=== PATIENT | male | born 1980 | race American Indian/Alaskan Native ===

== ENCOUNTER 2020-07-21 08:43 | Emergency (ER) | payer OTHER ==
[2020-07-21] MEDS ORDERED: SODIUM CHLORIDE 0.9% 1000 ML 1,000 ML IV ONE (08:59)
[2020-07-21] MEDS ORDERED: cefTRIAXone/NS 1 GM/50 ML 1 GM/50 ML BAG IV ONE (08:59)
[2020-07-21] MEDS ORDERED: KETOROLAC 30 MG/1 ML INJ IV ONE (08:59)
--- NOTE | 2020-07-21 09:02 | Emergency Department Report ---
ED ENT HPI - General Chief complaint: Earache Stated complaint: RT EAR PAINS Time Seen by Provider: 07/21/20 08:56 Source: patient Mode of arrival: Ambulatory Limitations: No Limitations - History of Present Illness Initial comments: 39 year old male with no significant pmhx presents to ED with right ear pain and swelling. Onset about 5 days ago. He report decrease hearing from right ear. He denies any drainage from ear. He denies injury to ear. He denies other URI symptoms including cough. He denies any fever or chills. MD complaint: ear pain -: Gradual, days(s) (4) - Related Data Previous Rx's Medication Instructions Recorded Last Taken Type Acetaminophen/Codeine [Tylenol 1 tab PO Q4HR PRN #12 tablet 07/21/20 Unknown Rx /Codeine # 3 tab] Cefdinir 300 mg PO BID #10 capsule 07/21/20 Unknown Rx Ciprofloxacin HCl/Dexameth 4 drop RTEAR BID 7 Days #7.5 ml 07/21/20 Unknown Rx [Ciprodex Otic Suspension] Ibuprofen [Motrin] 800 mg PO Q8HR PRN #30 tablet 07/21/20 Unknown Rx Allergies Allergy/AdvReac Type Severity Reaction Status Date / Time amoxicillin Allergy Unknown Verified 07/21/20 08:54 iodine Allergy Unknown Verified 07/21/20 08:54 Penicillins Allergy Unknown Verified 07/21/20 08:54 ED Dental HPI - General Chief complaint: Earache Stated complaint: RT EAR PAINS Time Seen by Provider: 07/21/20 08:56 Source: patient Mode of arrival: Ambulatory Limitations: No Limitations - Related Data Previous Rx's Medication Instructions Recorded Last Taken Type Acetaminophen/Codeine [Tylenol 1 tab PO Q4HR PRN #12 tablet 07/21/20 Unknown Rx /Codeine # 3 tab] Cefdinir 300 mg PO BID #10 capsule 07/21/20 Unknown Rx Ciprofloxacin HCl/Dexameth 4 drop RTEAR BID 7 Days #7.5 ml 07/21/20 Unknown Rx [Ciprodex Otic Suspension] Ibuprofen [Motrin] 800 mg PO Q8HR PRN #30 tablet 07/21/20 Unknown Rx Allergies Allergy/AdvReac Type Severity Reaction Status Date / Time amoxicillin Allergy Unknown Verified 07/21/20 08:54 iodine Allergy Unknown Verified 07/21/20 08:54 Penicillins Allergy Unknown Verified 07/21/20 08:54 ED Review of Systems ROS: Stated complaint: RT EAR PAINS Other details as noted in HPI Comment: All other systems reviewed and negative Constitutional: denies: chills, fever Eyes: denies: eye pain, eye discharge, vision change ENT: ear pain Respiratory: denies: cough, shortness of breath, SOB with exertion, SOB at rest, wheezing Cardiovascular: denies: chest pain, palpitations Endocrine: no symptoms reported Gastrointestinal: denies: abdominal pain, nausea, vomiting, diarrhea, constipation, hematemesis, hematochezia Genitourinary: denies: urgency, dysuria Skin: denies: rash, lesions, change in color, change in hair/nails Neurological: denies: headache, weakness, paresthesias Psychiatric: denies: anxiety, depression Hematological/Lymphatic: denies: easy bleeding, easy bruising ED Past Medical Hx - Past Medical History Previous Medical History?: No - Surgical History Past Surgical History?: No - Social History Smoking Status: Never Smoker Substance Use Type: None - Medications Home Medications: Home Medications Medication Instructions Recorded Confirmed Last Taken Type Acetaminophen/Codeine [Tylenol 1 tab PO Q4HR PRN #12 tablet 07/21/20 Unknown Rx /Codeine # 3 tab] Cefdinir 300 mg PO BID #10 capsule 07/21/20 Unknown Rx Ciprofloxacin HCl/Dexameth 4 drop RTEAR BID 7 Days #7.5 ml 07/21/20 Unknown Rx [Ciprodex Otic Suspension] Ibuprofen [Motrin] 800 mg PO Q8HR PRN #30 tablet 07/21/20 Unknown Rx ED Physical Exam - General Limitations: No Limitations General appearance: alert, in no apparent distress - Head Head exam: Present: atraumatic, normocephalic, normal inspection - Eye Eye exam: Present: normal appearance, PERRL, EOMI Pupils: Present: normal accommodation - Expanded ENT Exam Expanded Ear exam: Present: other (There is mild swelling noted to external ear; Mod swelling to ear canal with eythema and mild exudates noted in right ear canal. There is significant pain on insertion of otoscope; there is mild preauricular swelling with associated erythema which extends to below earlobe and to mastoid) TM/Canal exam: Erythema: Right TM, Effusion: Right TM, Mastoid Tenderness: Right TM, Canal Discharge: Right TM, Canal Tenderness: Right TM Mouth exam: Present: normal external inspection Teeth exam: Present: normal inspection Throat exam: Positive: normal inspection - Neck Neck exam: Present: normal inspection, full ROM - Respiratory Respiratory exam: Present: normal lung sounds bilaterally. Absent: respiratory distress - Cardiovascular Cardiovascular Exam: Present: regular rate, normal rhythm, normal heart sounds - Neurological Exam Neurological exam: Present: alert, oriented X3, CN II-XII intact, normal gait - Psychiatric Psychiatric exam: Present: normal affect, normal mood - Skin Skin exam: Present: intact ED Course Vital Signs 07/21/20 07/21/20 07/21/20 08:54 09:45 09:48 Temperature 98.3 F Pulse Rate 60 Respiratory 18 16 16 Rate Blood Pressure 107/68 Blood Pressure [Left] O2 Sat by Pulse 99 Oximetry 07/21/20 07/21/20 07/21/20 10:15 11:06 11:10 Temperature Pulse Rate 66 Respiratory 16 16 16 Rate Blood Pressure Blood Pressure 112/72 [Left] O2 Sat by Pulse 99 Oximetry 07/21/20 11:51 Temperature Pulse Rate Respiratory 16 Rate Blood Pressure Blood Pressure [Left] O2 Sat by Pulse Oximetry ED Medical Decision Making - Lab Data Result diagrams: 07/21/20 09:35 07/21/20 09:35 - Radiology Data Radiology results: report reviewed Patient: RYANN MILLER MR#: [id number] 3 : 1980 Acct:[id number] Age/Sex: 39 / M ADM Date: 07/21/20 Loc: ED Attending Dr: Ordering Physician: JAY ARITA Date of Service: 07/21/20 Procedure(s): CT sinuses wo con Accession Number(s): [id number] cc: JAY ARITA SINUS CT 07/21/2020 HISTORY: right ear pain/swelling/redness r/o mastoiditis FINDINGS: CT images of the paranasal sinuses and skull base were obtained. Images are evaluated in the axial, coronal, and sagittal plane. There is no evidence of acute sinusitis. 1 cm mucosal retention cyst is present in the inferior aspect of left maxillary sinus. Paranasal sinuses are otherwise clear. The temporal bones are well pneumatized bilaterally and well aerated. There is no evidence of abnormal soft tissue or fluid within the mastoid air cells, mastoid antrum, or middle ear. There is soft tissue swelling involving the external auditory canal, and prominent soft tissue swelling posterior to the external canal overlying the mastoid tip. This swelling is of mixed attenuation. Small 6 level and air-fluid collection cannot be excluded. IMPRESSION: 1. No evidence of mastoiditis. 2. Soft tissue swelling associated with external auditory canal and adjacent soft tissues. This is most consistent with infection. All CT scans at this location are performed using dose reduction to ALARA by means of automated exposure control. Signer Name: Duc Torres MD Signed: 07/21/2020 10:33 AM Workstation Name: [id number] Transcribed By: BECK Dictated By: Duc Torres MD Electronically Authenticated By: Duc Torres MD Signed Date/Time: 07/21/20 1033 DD/ 1028 TD/TT: - Medical Decision Making labs reviewed and unremarkable. CT shows 1. No evidence of mastoiditis. 2. Soft tissue swelling associated with external auditory canal and adjacent soft tissues. This is most consistent with infection. Patient given IV rocephin. He reports improvement of pain after meds. He is not toxic or ill appearing and not in any acute distress. He is neurologically intact. His VS stable. No indication for admission, emergent consult at this time. Discussed lab/ct reports, diagnoses and tx plan with patient. Recommend f/u with ENT if not better but to return to ED if worse. Patient expressed understanding of inst ructions and agreed with plan. Patient stable at time of d/c. Critical care attestation.: If time is entered above; I have spent that time in minutes in the direct care of this critically ill patient, excluding procedure time. ED Disposition Clinical Impression: Cellulitis of left external ear, Otitis externa, left, Left otitis media Disposition: DC-01 TO HOME OR SELFCARE Is pt being admited?: No Does the pt Need Aspirin: No Condition: Stable Instructions: Otitis Externa, Onld-by-Xeuv, Cellulitis, Adult, Otitis Media, Adult, [id number] Additional Instructions: Take the cefdinir and use the antibiotic eardrops as prescribed. Take the pain medications as prescribed. Try to avoid any water in your ear or any foreign body in your ear. Follow-up with the ENT doctor if your symptoms are not improving. Return to the ER if your symptoms worsens or changes in any way. Prescriptions: Cefdinir 300 mg PO BID #10 capsule Ciprofloxacin HCl/Dexameth [Ciprodex Otic Suspension] 4 drop RTEAR BID 7 Days #7.5 ml Ibuprofen [Motrin] 800 mg PO Q8HR PRN #30 tablet PRN Reason: pain Acetaminophen/Codeine [Tylenol /Codeine # 3 tab] 1 tab PO Q4HR PRN #12 tablet PRN Reason: Pain Referrals: PRIMARY MD FAYE [Primary Care Provider] - 3-5 Days MARC RAIN MD [Staff Physician] - 3-5 Days Forms: Work/School Release Form(ED) Time of Disposition: 11:27
[2020-07-21 10:23] LABS: Basophils # (Auto) 0.1 K/mm3 (0.0-0.1); Eosinophils # (Auto) 0.1 K/mm3 (0.0-0.4); Eosinophils % (Auto) 1.5 % (0.0-4.3); Hematocrit 35.9 % (35.5-45.6); Hemoglobin 12.3 gm/dl (11.8-15.2); Lymphocytes # (Auto) 1.7 K/mm3 (1.2-5.4); Lymphocytes % (Auto) 26.7 % (13.4-35.0); Mean Corpuscular HGB Conc 34 % (32-34); Mean Corpuscular Volume 91 fl (84-94); Monocytes # (Auto) 0.7 K/mm3 (0.0-0.8); Monocytes % (Auto) 10.6 % (0.0-7.3); Platelet Count 210 K/mm3 (140-440); Red Blood Count 3.96 M/mm3 (3.65-5.03); Red Cell Distribution Width 14.4 % (13.2-15.2)
[2020-07-21 10:33] LABS: Alanine Aminotransferase 15 units/L (7-56); Albumin 3.8 g/dL (3.9-5); BUN/Creatinine Ratio 14; Blood Urea Nitrogen 11 mg/dL (9-20); Hemolysis Index 25
--- NOTE | 2020-07-21 10:38 | Cat Scan Report ---
SINUS CT 07/21/2020 HISTORY: right ear pain/swelling/redness r/o mastoiditis FINDINGS: CT images of the paranasal sinuses and skull base were obtained. Images are evaluated in th e axial, coronal, and sagittal plane. There is no evidence of acute sinusitis. 1 cm mucosal retention cyst is present in the inferior aspec t of left maxillary sinus. Paranasal sinuses are otherwise clear. The temporal bones are well pneumatized bilaterally and well aerated. There is no evidence of abnorma l soft tissue or fluid within the mastoid air cells, mastoid antrum, or middle ear. There is soft tissue swelling involving the external auditory canal, and prominent soft tissue swelli ng posterior to the external canal overlying the mastoid tip. This swelling is of mixed attenuation. Small 6 level and air-fluid collection cannot be excluded. IMPRESSION: 1. No evidence of mastoiditis. 2. Soft tissue swelling associated with external auditory canal and adjacent soft tissues. This is mo st consistent with infection. All CT scans at this location are performed using dose reduction to ALARA by means of automated expos ure control. Signer Name: Duc Torres MD Signed: 07/21/2020 10:33 AM Workstation Name: [id number]
[2020-07-21] MEDS ORDERED: HYDROcodone/ACETAMINOPHEN 10-325MG TAB PO ONE (10:48)
[2020-07-21 11:51] VITALS: BP 112/72
== END 2020-07-21 11:52 | disposition home or self-care (01) ==
LOC: ED 08:43
DX: H60.12 Cellulitis of left external ear (principal); H60.92 Unspecified otitis externa, left ear; H66.92 Otitis media, unspecified, left ear; Z79.899 Other long term (current) drug therapy; Z88.0 Allergy status to penicillin; Z88.8 Allergy status to other drugs, medicaments and biological substances
CPT/HCPCS: 36415; 70486; 80053; 85025; 96365; 96375; 99284; J0696; J1885; J7030

== ENCOUNTER 2021-02-06 20:46 | Emergency (ER) | payer OTHER ==
[2021-02-06] MEDS ORDERED: SULFAMETHOXAZOLE/TRIMETHOPRIM 800/160MG DS TAB PO ONE (21:45)
[2021-02-06] MEDS ORDERED: ACETAMINOPHEN 325 MG TAB PO ONE (21:45)
[2021-02-06] MEDS ORDERED: IBUPROFEN 400 MG TAB PO ONE (21:45)
--- NOTE | 2021-02-06 21:49 | Emergency Department Report ---
ED Lower Extremity HPI - General Chief Complaint: Extremity Injury, Lower Stated Complaint: LEFT FOOT INFECTION Time Seen by Provider: 02/06/21 21:32 Source: patient, RN notes reviewed, old records reviewed Mode of arrival: Ambulatory Limitations: No Limitations - History of Present Illness Initial Comments: The patient was evaluated in the emergency department for symptoms described in the history of present illness. He/she was evaluated in the context of the global COVID-19 pandemic, which necessitated consideration that the patient might be at risk for infection with the virus that causes COVID-19. Institutional protocols and algorithms that pertain to the evaluation of patients at risk for COVID-19 are in a state of rapid change based on i nformation released by regulatory bodies including the CDC and federal and state organizations. These policies and algorithms were followed during the patient's care in the emergency department. Please note that these policies, procedures and recommendations changed on a rapid basis. The patient is a 40-year-old gentleman, who works as a product delivery specialist/worker, presenting to the ER with 1 month of foot discomfort, in between his fifth and fourth toe on his left foot, and fourth and third toe on his left foot. The patient reports that he is very itchy, and has had some skin breakdown. He denies headache, neck pain, chest pain abdominal pain or shortness of breath. He denies additional injuries and complaints. The patient reports that he wears tight fitting socks and shoes for a prolonged period of time at work. Has not taken anything significant [id number] for pain and/or discomfort. Pain is throbbing and aching, increases with palpation, decreases with rest. He is also intensely itchy. Complaint: foot injury, other -: week(s) (3 to 4 weeks) Injury: Toes: Left Type of Injury: other (No mechanism of injury) Severity: moderate Improves With: rest Worsens With: palpation - Related Data Previous Rx's Medication Instructions Recorded Last Taken Type Cefdinir 300 mg PO BID #10 capsule 07/21/20 Unknown Rx Ciprofloxacin HCl/Dexameth 4 drop RTEAR BID 7 Days #7.5 ml 07/21/20 Unknown Rx [Ciprodex Otic Suspension] Ibuprofen [Motrin] 800 mg PO Q8HR PRN #30 tablet 07/21/20 Unknown Rx Sulfamethoxazole/Trimethoprim 1 each PO BID #14 tablet 02/06/21 Unknown Rx [Bactrim DS TAB] Terbinafine [LamiSIL At 1%] 1 applicatio TP BID 30 Days #1 tube 02/06/21 Unknown Rx Allergies Allergy/AdvReac Type Severity Reaction Status Date / Time amoxicillin Allergy Unknown Verified 02/06/21 21:18 iodine Allergy Unknown Verified 02/06/21 21:18 Penicillins Allergy Unknown Verified 02/06/21 21:18 ED Review of Systems ROS: Stated complaint: LEFT FOOT INFECTION Other details as noted in HPI Constitutional: denies: fever Eyes: denies: eye discharge ENT: denies: epistaxis Respiratory: denies: cough Cardiovascular: denies: chest pain Gastrointestinal: denies: abdominal pain Skin: rash, lesions, pruritus Neurological: denies: weakness ED Past Medical Hx - Past Medical History Previous Medical History?: No - Surgical History Past Surgical History?: No - Social History Smoking Status: Never Smoker Substance Use Type: None - Medications Home Medications: Home Medications Medication Instructions Recorded Confirmed Last Taken Type Cefdinir 300 mg PO BID #10 capsule 07/21/20 Unknown Rx Ciprofloxacin HCl/Dexameth 4 drop RTEAR BID 7 Days #7.5 ml 07/21/20 Unknown Rx [Ciprodex Otic Suspension] Ibuprofen [Motrin] 800 mg PO Q8HR PRN #30 tablet 07/21/20 Unknown Rx Sulfamethoxazole/Trimethoprim 1 each PO BID #14 tablet 02/06/21 Unknown Rx [Bactrim DS TAB] Terbinafine [LamiSIL At 1%] 1 applicatio TP BID 30 Days #1 tube 02/06/21 Unknown Rx ED Physical Exam - General Limitations: No Limitations General appearance: alert, in no apparent distress - Head Head exam: Present: atraumatic, normocephalic - Eye Eye exam: Present: normal appearance, EOMI. Absent: nystagmus - ENT ENT exam: Present: normal exam, normal orophraynx, mucous membranes moist, normal external ear exam - Neck Neck exam: Present: normal inspection, full ROM. Absent: tenderness, meningismus - Respiratory Respiratory exam: Present: normal lung sounds bilaterally. Absent: respiratory distress, wheezes, rales, rhonchi, stridor, decreased breath sounds - Cardiovascular Cardiovascular Exam: Present: regular rate, normal rhythm, normal heart sounds. Absent: bradycardia, tachycardia, irregular rhythm, systolic murmur, diastolic murmur, rubs, gallop - GI/Abdominal GI/Abdominal exam: Present: soft. Absent: distended, tenderness, guarding, rebound, rigid, pulsatile mass - Rectal Rectal exam: Present: deferred - Extremities Exam Extremities exam: Present: full ROM, other (2+ pulses noted in the bilateral upper extremities. The left foot has 2+ pulses in the dorsalis pedis distribution. Capillary refill is brisk. Macerated skin noted on the plantar aspect of the left foot, near toes 3 4 and 5. There is whitish discharge between toes 3 and 4, and 4 and 5. ). Absent: calf tenderness - Back Exam Back exam: Present: normal inspection, full ROM, other (Pus is not noted. The toes are tender. Compartments are soft.) - Neurological Exam Neurological exam: Present: alert, oriented X3, other (No facial droop. Tongue midline. Extraocular movements intact bilaterally. Facial sensation intact to light touch in V1, V2, V3 distribution bilaterally. 5 and a 5 strength in 4 extremities. Sensation intact to light touch in 4 extremities.). Absent: motor sensory deficit - Psychiatric Psychiatric exam: Present: anxious - Skin Skin exam: Present: warm, erythema. Absent: cyanosis, diaphoretic, urticaria, vesicles, petechiae, pallor, abrasion, ecchymosis ED Course Vital Signs 02/06/21 21:13 Temperature 98 F Pulse Rate 66 Respiratory 18 Rate Blood Pressure 107/70 O2 Sat by Pulse 99 Oximetry ED Lower Extremity MDM - Lab Data Vital Signs 02/06/21 21:13 Temperature 98 F Pulse Rate 66 Respiratory 18 Rate Blood Pressure 107/70 O2 Sat by Pulse 99 Oximetry - Medical Decision Making Differential diagnosis, including but not limited to: Tinea pedis, skin breakdown Assessment and plan: 40-year-old gentleman with probable tinea pedis, and possible superinfection. He is not diabetic or immune compromised. He has brisk pulses. He has good capillary refill, muscular compartments are soft. Extensively discussed proper hygiene, wound care, we will initiate topical therapy, antibiotics, patient referred to primary care, podiatry and wound care. He has endorsed understanding. Return precautions are reviewed. Critical care attestation.: If time is entered above; I have spent that time in minutes in the direct care of this critically ill patient, excluding procedure time. ED Disposition Clinical Impression: Tinea pedis, Left foot pain Disposition: HOME / SELF CARE / HOMELESS Is pt being admited?: No Does the pt Need Aspirin: No Condition: Stable Instructions: Athlete's Foot Additional Instructions: Recommend that the patient wear loose fitting footwear, and clean socks on a daily basis. Recommend that patient wash feet and toes with gentle soap and water once every 12 hours/day. Use the topical terbinafine for 4 weeks. Take the antibiotics as directed, and do not consume alcohol while taking the antibiotics. Follow-up with a primary care doctor, epic willow specialist, or vendor management associate within the next 5 to 7 days for repeat checkup and evaluation. Please return to the emergency room right away with new pain, worsened pain, migration of pain, rectal vomiting, change in mental status, confusion, inability to tolerate liquid feeds, redness, pus, streaking, or any new, worsened or different symptoms not present on the initial emergency room evaluation. Prescriptions: Sulfamethoxazole/Trimethoprim [Bactrim DS TAB] 1 each PO BID #14 tablet Terbinafine [LamiSIL At 1%] 1 applicatio TP BID 30 Days #1 tube Referrals: PATO DOHERTY DPM [Staff Physician] - 3-5 Days [facility] [Outside] - 3-5 Days [facility] [Provider Group] - 3-5 Days Forms: Work/School Release Form(ED)
[2021-02-06 23:15] VITALS: BP 113/67
== END 2021-02-06 23:16 | disposition home or self-care (01) ==
LOC: ED 20:46
DX: B35.3 Tinea pedis (principal); M79.672 Pain in left foot; Z88.0 Allergy status to penicillin; Z91.041 Radiographic dye allergy status
CPT/HCPCS: 99282

== ENCOUNTER 2021-03-10 13:55 | Emergency (ER) | payer OTHER ==
--- NOTE | 2021-03-10 16:26 | Emergency Department Report ---
- General Chief complaint: Earache Stated complaint: RT EAR PAIN AND SWOLLEN Time Seen by Provider: 03/10/21 14:49 Source: patient Mode of arrival: Ambulatory Limitations: No Limitations - History of Present Illness Initial comments: The patient was evaluated in the emergency department for symptoms described in the history of present illness. He/she was evaluated in the context of the global COVID-19 pandemic, which necessitated consideration that the patient might be at risk for infection with the virus that causes COVID-19. Institutional protocols and algorithms that pertain to the evaluation of patients at risk for COVID-19 are in a state of rapid change based on information released by regulatory bodies including the CDC and federal and state organizations. These policies and algorithms were followed during the patient's care in the emergency department. Please note that these policies, procedures and recommendations changed on a rapid basis. 40-year-old -[place] male sent to the emergency room for right postauricular ear pain and swelling since Monday. Patient states he has been taking ibuprofen without much for help. Patient does not have a primary care provider. States he is allergic to amoxicillin and penicillin. Denies any trauma. MD complaint: abscess/boil - Related Data Previous Rx's Medication Instructions Recorded Last Taken Type Cefdinir 300 mg PO BID #10 capsule 07/21/20 Unknown Rx Ciprofloxacin HCl/Dexameth 4 drop RTEAR BID 7 Days #7.5 ml 07/21/20 Unknown Rx [Ciprodex Otic Suspension] Ibuprofen [Motrin] 800 mg PO Q8HR PRN #30 tablet 07/21/20 Unknown Rx Sulfamethoxazole/Trimethoprim 1 each PO BID #14 tablet 02/06/21 Unknown Rx [Bactrim DS TAB] Terbinafine [LamiSIL At 1%] 1 applicatio TP BID 30 Days #1 tube 02/06/21 Unknown Rx Sulfamethoxazole/Trimethoprim 1 each PO BID 7 Days #14 tablet 03/10/21 Unknown Rx [Bactrim DS TAB] Allergies Allergy/AdvReac Type Severity Reaction Status Date / Time amoxicillin Allergy Unknown Verified 03/10/21 14:00 iodine Allergy Unknown Verified 03/10/21 14:00 Penicillins Allergy Unknown Verified 03/10/21 14:00 Abscess Boil HPI - HPI Chief Complaint: Earache Stated Complaint: RT EAR PAIN AND SWOLLEN Time Seen by Provider: 03/10/21 14:49 Home Medications: Previous Rx's Medication Instructions Recorded Last Taken Type Cefdinir 300 mg PO BID #10 capsule 07/21/20 Unknown Rx Ciprofloxacin HCl/Dexameth 4 drop RTEAR BID 7 Days #7.5 ml 07/21/20 Unknown Rx [Ciprodex Otic Suspension] Ibuprofen [Motrin] 800 mg PO Q8HR PRN #30 tablet 07/21/20 Unknown Rx Sulfamethoxazole/Trimethoprim 1 each PO BID #14 tablet 02/06/21 Unknown Rx [Bactrim DS TAB] Terbinafine [LamiSIL At 1%] 1 applicatio TP BID 30 Days #1 tube 02/06/21 Unknown Rx Sulfamethoxazole/Trimethoprim 1 each PO BID 7 Days #14 tablet 03/10/21 Unknown Rx [Bactrim DS TAB] Allergies/Adverse Reactions: Allergies Allergy/AdvReac Type Severity Reaction Status Date / Time amoxicillin Allergy Unknown Verified 03/10/21 14:00 iodine Allergy Unknown Verified 03/10/21 14:00 Penicillins Allergy Unknown Verified 03/10/21 14:00 ED Review of Systems ROS: Stated complaint: RT EAR PAIN AND SWOLLEN Other details as noted in HPI ED Past Medical Hx - Social History Smoking Status: Never Smoker Substance Use Type: None - Medications Home Medications: Home Medications Medication Instructions Recorded Confirmed Last Taken Type Cefdinir 300 mg PO BID #10 capsule 07/21/20 Unknown Rx Ciprofloxacin HCl/Dexameth 4 drop RTEAR BID 7 Days #7.5 ml 07/21/20 Unknown Rx [Ciprodex Otic Suspension] Ibuprofen [Motrin] 800 mg PO Q8HR PRN #30 tablet 07/21/20 Unknown Rx Sulfamethoxazole/Trimethoprim 1 each PO BID #14 tablet 02/06/21 Unknown Rx [Bactrim DS TAB] Terbinafine [LamiSIL At 1%] 1 applicatio TP BID 30 Days #1 tube 02/06/21 Unknown Rx Sulfamethoxazole/Trimethoprim 1 each PO BID 7 Days #14 tablet 03/10/21 Unknown Rx [Bactrim DS TAB] ED Physical Exam - General Limitations: No Limitations ED Course Vital Signs 03/10/21 03/10/21 14:00 16:42 Temperature 98.6 F Pulse Rate 65 60 Respiratory 18 14 Rate Blood Pressure 117/64 Blood Pressure 118/62 [Right] O2 Sat by Pulse 100 99 Oximetry - I & D Left Ear Type of Procedure: Simple Site: Postauricular left ear Blade Size: 11 I & D Procedure: betadine prep, sterile drapes applied, sterile dressing applied Progress: Patient tolerated well ED Medical Decision Making - Medical Decision Making 40-year-old -[place] male sent to the emergency room for right postauricular ear pain and swelling since Monday. Patient states he has been taking ibuprofen without much for help. Patient does not have a primary care provider. States he is allergic to amoxicillin and penicillin. Denies any trauma. Incision and drain of left postauricular area. Patient placed on doxycycline he can take [id number] ibuprofen or Tylenol for pain management. Encourage patient to follow-up with a primary care provider. Critical care attestation.: If time is entered above; I have spent that time in minutes in the direct care of this critically ill patient, excluding procedure time. ED Disposition Clinical Impression: Abscess, postauricular Disposition: 01 HOME / SELF CARE / HOMELESS Is pt being admited?: No Does the pt Need Aspirin: No Condition: Stable Instructions: Skin Abscess, [id number] Additional Instructions: Complete antibiotics as prescribed follow-up with your primary care provider. Prescriptions: Sulfamethoxazole/Trimethoprim [Bactrim DS TAB] 1 each PO BID 7 Days #14 tablet Referrals: YEE MCKINNEY MD [Primary Care Provider] - 3-5 Days NOHELIA ALTAMIRANO MD [Staff Physician] - 3-5 Days Forms: Work/School Release Form(ED) Time of Disposition: 16:40
[2021-03-10 16:43] VITALS: BP 118/62
== END 2021-03-10 16:42 | disposition home or self-care (01) ==
LOC: ED 13:55
DX: H60.02 Abscess of left external ear (principal); H66.41 Suppurative otitis media, unspecified, right ear; Z88.0 Allergy status to penicillin; Z91.041 Radiographic dye allergy status
CPT/HCPCS: 99282